=== PATIENT | male | born 1975 | race Caucasian/White ===

== ENCOUNTER → 2020-04-18 | Outpatient (CLI) | payer OTHER ==
--- NOTE | 2020-04-18 11:37 | XR ---
Lumbar spine HISTORY: Low back pain 3 views lumbar spine Lumbar vertebral bodies show preserved height, alignment, and bone mineralization. Some mild loss of disc height present at L5-S1. Is multilevel spondylosis. Sclerosis present in the posterior elements at the lower lumbar spine. IMPRESSION: Degenerative disc disease and facet arthropathy.
== END | disposition home or self-care (01) ==
LOC: RADXRMAIN 09:29 → EDBD 09:29
PROVIDERS: ATTEND Nurse Practitioner Family
DX: M51.36 Other intervertebral disc degeneration, lumbar region (principal); M46.96 Unspecified inflammatory spondylopathy, lumbar region
CPT/HCPCS: 72100

== ENCOUNTER 2020-08-18 16:58 | Emergency (ER) | payer OTHER ==
[2020-08-18 17:13] VITALS: BP 133/84; PULSE 84; RESP 18; TEMP 98.6
--- NOTE | 2020-08-18 17:32 | ED ---
URI HPI - General Chief Complaint: Upper Respiratory Infection Stated Complaint: cough Time Seen by Provider: 08/18/20 17:17 Source: patient Mode of arrival: ambulatory Limitations: no limitations - History of Present Illness Initial Comments: Patient is a 45-year-old male presenting to emergency Department with complaints of a cough, chest congestion, nasal congestion for the last 3 days. Patient states the cough has been keeping all but night. He states that mostly dry cough but he does produce some yellow sputum here and there. He states he does get short of breath when he is coughing. No short of breath while at rest. He states he gets his temperature checked daily for work and he has been afebrile. He denies fever, chills, chest pains, abdominal pain, nausea, vomiting. Patient feels like his symptoms are worsening quickly. He does admit to being every day smoker, no history of asthma or COPD. He has no further complaints at this time. Upon arrival to the ER his vitals are stable. - Related Data Previous Rx's Medication Instructions Recorded Azithromycin [Zithromax Z-pack (6 0 mg PO DIRECTED #1 pack 08/18/20 tabs)] Benzonatate [Tessalon Perles] 100 mg PO TID PRN #15 capsule 08/18/20 predniSONE [Deltasone] 20 mg PO BID 3 Days #6 tab 08/18/20 Allergies Allergy/AdvReac Type Severity Reaction Status Date / Time No Known Allergies Allergy Verified 08/18/20 17:14 Review of Systems ROS Statement: Those systems with pertinent positive or pertinent negative responses have been documented in the HPI. ROS Other: All systems not noted in ROS Statement are negative. Past Medical History Past Medical History: No Reported History History of Any Multi-Drug Resistant Organisms: None Reported Past Surgical History: Orthopedic Surgery Additional Past Surgical History / Comment(s): bilateral carpal tunnel. R hand pin Past Psychological History: Anxiety, Depression Smoking Status: Current every day smoker Past Alcohol Use History: None Reported Past Drug Use History: Marijuana General Exam - General Exam Comments Initial Comments: GENERAL: Patient is well-developed and well-nourished. Patient is nontoxic and in no acute distress. HEAD: Atraumatic, normocephalic. EYES: Pupils equal round and reactive to light, extraocular movements intact, sclera anicteric, conjunctiva are normal. Eyelids were unremarkable. ENT: TMs normal, nares patent, oropharynx clear without exudates. Moist mucous membranes. NECK: Normal range of motion, supple without lymphadenopathy or JVD. LUNGS: Unlabored respirations. Breath sounds clear to auscultation bilaterally and equal. No wheezes rales or rhonchi. HEART: Regular rate and rhythm without murmurs, rubs or gallops. ABDOMEN: Soft, nontender, normoactive bowel sounds. No guarding, no rebound. No masses appreciated. : Deferred MUSCULOSKELETAL: Normal extremities with adequate strength and normal range of motion, no pitting or edema. No clubbing or cyanosis. NEUROLOGICAL: Patient is alert and oriented x 3. Normal speech, normal gait. PSYCH: Normal mood, normal affect. SKIN: Warm, Dry, normal turgor, no rashes or lesions noted. Limitations: no limitations Course Vital Signs 08/18/20 17:10 Temperature 98.6 F Pulse Rate 84 Respiratory 18 Rate Blood Pressure 133/84 O2 Sat by Pulse 100 Oximetry Medical Decision Making - Medical Decision Making Patient is a 45-year-old male here for upper respiratory symptoms including cough, chest congestion. His vitals are stable he's been afebrile. His exam is unremarkable except for some very mild scattered wheezes. He is an every day smoker. I discussed with patient and his symptoms are most likely related to bronchitis and/or an upper respiratory viral infection. I will give patient a short course of steroids, Z-Doyle, cough medicine. He is in agreement with this plan and care. He is stable for discharge. Symptoms persist he can follow up with his PCP. Return parameters were discussed with the patient he verbalizes understanding. Disposition Clinical Impression: Upper respiratory tract infection, Bronchitis Disposition: HOME SELF-CARE Condition: Stable Instructions (If sedation given, give patient instructions): Upper Respiratory Infection (ED) Additional Instructions: Please return to the Emergency Department if symptoms worsen or any other conc erns. Take medications as prescribed. Stop smoking. Follow-up with PCP if symptoms persist. Prescriptions: predniSONE [Deltasone] 20 mg PO BID 3 Days #6 tab Benzonatate [Tessalon Perles] 100 mg PO TID PRN #15 capsule PRN Reason: Cough Azithromycin [Zithromax Z-pack (6 tabs)] 0 mg PO DIRECTED #1 pack Is patient prescribed a controlled substance at d/c from ED?: No Referrals: [facility] [Primary Care Provider] - 1-2 days
== END 2020-08-18 18:17 | disposition home or self-care (01) ==
LOC: EC 16:58
DX: J06.9 Acute upper respiratory infection, unspecified (principal); J40 Bronchitis, not specified as acute or chronic; F17.200 Nicotine dependence, unspecified, uncomplicated
CPT/HCPCS: 99282

== ENCOUNTER 2020-10-25 14:38 | Emergency (ER) | payer OTHER ==
[2020-10-25 14:42] VITALS: PULSE 83; RESP 16; TEMP 97.9
[2020-10-25 14:43] VITALS: BP 127/92
--- NOTE | 2020-10-25 14:43 | ED ---
Extremity Problem HPI - General Chief complaint: Extremity Problem,Nontraumatic Stated complaint: R Elbow/Arm Pain Time Seen by Provider: 10/25/20 14:43 Source: patient Mode of arrival: ambulatory Limitations: no limitations - History of Present Illness Initial comments: 46-year-old male presenting to the emergency department for chief complaint of right elbow pain. Patient reports he had cubital tunnel syndrome and had a surgery performed which helped alleviate his symptoms. Patient states about 1 month ago he felt a pop in the right elbow, however since he has developed localized pain along the medial aspect near the medial epicondylitis. Patient reports pain with pronation and supination. Denies any erythema limited range of motion. But does report slight decrease in strength. Denies numbness or tingling. Denies injury. - Related Data Previous Rx's Medication Instructions Recorded Azithromycin [Zithromax Z-pack (6 0 mg PO DIRECTED #1 pack 08/18/20 tabs)] Benzonatate [Tessalon Perles] 100 mg PO TID PRN #15 capsule 08/18/20 predniSONE [Deltasone] 20 mg PO BID 3 Days #6 tab 08/18/20 Allergies Allergy/AdvReac Type Severity Reaction Status Date / Time No Known Allergies Allergy Verified 10/25/20 14:42 Review of Systems ROS Statement: Those systems with pertinent positive or pertinent negative responses have been documented in the HPI. ROS Other: All systems not noted in ROS Statement are negative. Past Medical History Past Medical History: No Reported History History of Any Multi-Drug Resistant Organisms: None Reported Past Surgical History: Orthopedic Surgery Additional Past Surgical History / Comment(s): bilateral carpal tunnel. R hand pin Past Psychological History: Anxiety, Depression Smoking Status: Current every day smoker Past Alcohol Use History: None Reported Past Drug Use History: Marijuana General Exam Limitations: no limitations General appearance: alert, in no apparent distress Head exam: Present: atraumatic, normocephalic, normal inspection Eye exam: Present: normal appearance, PERRL, EOMI Pupils: Present: normal accommodation ENT exam: Present: normal exam, normal oropharynx, mucous membranes moist, TM's normal bilaterally, normal external ear exam Neck exam: Present: normal inspection, full ROM. Absent: tenderness Respiratory exam: Present: normal lung sounds bilaterally. Absent: respiratory distress, wheezes, rales Cardiovascular Exam: Present: regular rate, normal rhythm, normal heart sounds. Absent: systolic murmur, diastolic murmur Extremities exam: Present: normal inspection, full ROM, tenderness (Tenderness near the medial epicondylitis of the right upper extremities.), normal capillary refill, other (+2 ulnar and radial pulses bilateral. Sensation intact in the right upper extremity.). Absent: pedal edema, joint swelling, calf tenderness Back exam: Present: normal inspection, full ROM. Absent: tenderness, CVA tenderness (R), CVA tenderness (L) Neurological exam: Present: alert, oriented X3, normal gait Psychiatric exam: Present: normal affect, normal mood Skin exam: Present: warm, dry, intact, normal color Course Vital Signs 10/25/20 10/25/20 10/25/20 14:39 14:42 15:54 Temperature 97.9 F 97.9 F Pulse Rate 83 83 Respiratory 16 16 Rate Blood Pressure 143/101 127/92 127/92 O2 Sat by Pulse 99 99 Oximetry Medical Decision Making - Medical Decision Making 45-year-old male presenting to emergency Department with a chief complaint of right elbow pain. Physical examination, patient has localized tenderness over the medial epicondyle. X-ray of the right elbow is unremarkable. Patient was advised to alternate between Tylenol and Motrin for pain control. Morris wrap was applied. He was advised to follow with grievance and appeals specialist. He is neurovascularly intact. Return parameters were thoroughly discussed the patient is understandable. Case discussed with physician. Disposition Clinical Impression: Right elbow pain Disposition: HOME SELF-CARE Condition: Stable Instructions (If sedation given, give patient instructions): Elbow Sprain (ED) Additional Instructions: Follow-up with orthopedics. Return to emergency department if symptoms worsen. Is patient prescribed a controlled substance at d/c from ED?: No [facility] Simone Hunt MD [STAFF PHYSICIAN] - 1-2 days Time of Disposition: 15:42
--- NOTE | 2020-10-25 15:36 | XR ---
EXAMINATION TYPE: XR elbow complete RT DATE OF EXAM: 10/25/2020 COMPARISON: NONE HISTORY: Pain TECHNIQUE: 3 views FINDINGS: I see no fracture nor dislocation. Joint spaces are normal. There is no sign of elbow joint effusion. IMPRESSION: Negative right elbow exam. No fracture seen.
== END 2020-10-25 15:54 | disposition home or self-care (01) ==
LOC: EC 14:38
DX: M25.521 Pain in right elbow (principal); F17.200 Nicotine dependence, unspecified, uncomplicated; Z98.890 Other specified postprocedural states
CPT/HCPCS: 99283